=== PATIENT | female | born 1955 | race Caucasian/White ===

== ENCOUNTER 2017-11-05 22:49 | Emergency (ER) | payer BC ==
[~2017-11-05] VITALS: Ht 154.9 cm; Wt 104.3 kg
[2017-11-05] MEDS ORDERED: METAXALONE800 MG PO (23:11)
[2017-11-05] MEDS ORDERED: XOPENEX HFA15 GM INH (23:11)
[2017-11-05] MEDS ORDERED: MELOXICAM15 MG PO (23:12)
[2017-11-05] MEDS ORDERED: LIOTHYRONINE SO5 MCG PO (23:13)
[2017-11-05] MEDS ORDERED: LEVOTHYROXINE137 MCG PO (23:13)
[2017-11-05] MEDS ORDERED: PREVACID30 MG PO (23:13)
[2017-11-05] MEDS ORDERED: GEMFIBROZIL600 MG PO (23:14)
[2017-11-05] MEDS ORDERED: CRANBERRY500 MG PO (23:14)
[2017-11-05] MEDS ORDERED: OSTEO BI-FLEX1 EAC4 PO (23:14)
[2017-11-05] MEDS ORDERED: VITAMIN E400 UNI5 PO (23:15)
[2017-11-05] MEDS ORDERED: SYMBICORT 16010.2 GM INH (23:15)
[2017-11-05] MEDS ORDERED: WOMEN'S DAILY1 EACH PO (23:15)
[2017-11-05] MEDS ORDERED: VITAMIN D-32000 UNIT PO (23:16)
[2017-11-05] MEDS ORDERED: NYSTATIN15 G1 TOP (23:18)
[2017-11-05] MEDS ORDERED: PREDNISONE20 MG PO (23:29)
[2017-11-05] MEDS ORDERED: HYDROXYZINE HCL25 MG PO (23:29)
== END 2017-11-05 23:49 | disposition home or self-care (01) ==
LOC: ED 22:49
DX: L50.9 Urticaria, unspecified (principal); J45.909 Unspecified asthma, uncomplicated; E78.00 Pure hypercholesterolemia, unspecified; Z85.3 Personal history of malignant neoplasm of breast; Z88.0 Allergy status to penicillin; Z88.1 Allergy status to other antibiotic agents; Z88.2 Allergy status to sulfonamides; Z88.8 Allergy status to other drugs, medicaments and biological substances; Z79.899 Other long term (current) drug therapy
CPT/HCPCS: 99283

== ENCOUNTER 2019-03-07 17:04 | Emergency (ER) | payer OTHER ==
[~2019-03-07] VITALS: Ht 154.9 cm; Wt 106.6 kg
[~2019-03-07 17:04] MED LIST: CRANBERRY500 MG PO; GEMFIBROZIL600 MG PO; HYDROXYZINE HCL25 MG PO; LEVOTHYROXINE137 MCG PO; LIOTHYRONINE SO5 MCG PO; MELOXICAM15 MG PO; METAXALONE800 MG PO; NYSTATIN15 G1 TOP; OSTEO BI-FLEX1 EAC4 PO; PREDNISONE20 MG PO; PREVACID30 MG PO; SYMBICORT 16010.2 GM INH; VITAMIN D-32000 UNIT PO; VITAMIN E400 UNI5 PO; WOMEN'S DAILY1 EACH PO; XOPENEX HFA15 GM INH
== END 2019-03-07 19:19 | disposition home or self-care (01) ==
LOC: ED 17:04
DX: S09.90XA Unspecified injury of head, initial encounter (principal); S00.83XA Contusion of other part of head, initial encounter; J45.909 Unspecified asthma, uncomplicated; E78.00 Pure hypercholesterolemia, unspecified; Z85.3 Personal history of malignant neoplasm of breast; Z90.710 Acquired absence of both cervix and uterus; Z88.0 Allergy status to penicillin; Z88.1 Allergy status to other antibiotic agents; Z88.2 Allergy status to sulfonamides; Z79.899 Other long term (current) drug therapy; W22.8XXA Striking against or struck by other objects, initial encounter
CPT/HCPCS: 70450; 99283-25